=== PATIENT | female | born 1945 | race Caucasian/White ===

== ENCOUNTER 2017-05-17 23:34 | Inpatient (IN) ==
[2017-05-18] MEDS ORDERED: MORPHINE 2 MG/1 ML SYRINGE ONE (00:17)
[2017-05-18] MEDS ORDERED: ONDANSETRON 4 MG/2 ML VIAL ONE ×4 (00:17→11:00)
[2017-05-18] MEDS ORDERED: SODIUM CHLORIDE 0.9% 1,000 ML IV STA (00:18)
[2017-05-18] MEDS ORDERED: ONDANSETRON 4 MG/2 ML VIAL IV ONE (00:18)
[2017-05-18] MEDS ORDERED: MORPHINE 2 MG/1 ML SYRINGE IV ONE (00:18)
[2017-05-18 00:44] LABS: Basophils # 0.1 10*3/uL (0.0-0.2); Basophils % 0.5 % (0.0-0.8); Eosinophils # 0.3 10*3/uL (0.0-0.87); Eosinophils % 2.9 % (0.00-10.9); Hematocrit 38.8 VOL% (35.7-47.0); Hemoglobin 13.3 GM/DL (12.0-16.0); Immature Granulocytes % 0.6 %; Immature Granulocytes Absolute 0.06 #; Lymphocytes # 1.6 10*3/uL (1.4-4.0); Lymphocytes % 16.8 % (21.3-54.2); Mean Corpuscular HGB Conc 34.3 GM/DL (32-36); Mean Corpuscular Hemoglobin 33 PG (27-34); Mean Corpuscular Volume 96.8 FL (87-102); Mean Platelet Volume 10.2 FL (9.6-12.0); Monocytes # 0.6 10*3/uL (0.11-0.8); Neutrophils # 6.8 10*3/uL (1.4-7.4); Neutrophils % 73.2 % (38.7-73.9); Platelet Count 183 T/CUMM (130-400); Red Blood Count 4.01 MC/CUMM (3.8-5.5); Red Cell Distribution Width 12.4 % (9.3-17.3); White Blood Count 9.3 T/CUMM (4-12)
[2017-05-18 00:51] LABS: INR 1.1
[2017-05-18 01:05] LABS: Alanine Aminotransferase 15 U/L (13-56); Alkaline Phosphatase 81 U/L (45-117); Aspartate Amino Transferase 21 U/L (0-37); Blood Urea Nitrogen 25 MG/DL (7-18); Glucose 126 MG/DL (74-106); Osmolality,Calculated 284.4 MOS/KG (273-304); Potassium 4.9 MMOL/L (3.5-5.1); Sodium 140 MMOL/L (136-145); Total Protein 7.7 G/DL (6.4-8.3); Troponin I Only < 0.015 NG/ML (0.00-0.045)
[2017-05-18] MEDS ORDERED: hydrALAZINE 20 MG/1 ML VIAL IV STA (01:22)
[2017-05-18] MEDS ORDERED: HYDROmorphone 2 MG/1 ML VIAL IV STA (01:22)
[2017-05-18] MEDS ORDERED: HYDROmorphone 2 MG/1 ML VIAL ONE (01:24)
[2017-05-18] MEDS ORDERED: hydrALAZINE 20 MG/1 ML VIAL ONE ×2 (01:24→10:56)
[2017-05-18] MEDS ORDERED: PROMETHAZINE INJ 25 MG in SODIUM CHLORIDE 0.9% 50 ML IV ONE (02:50)
[2017-05-18] MEDS ORDERED: PROMETHAZINE 25 MG/1 ML VIAL ONE (02:50)
[2017-05-18] MEDS ORDERED: PROMETHAZINE 25 MG/1 ML VIAL IM PRN (03:14)
[2017-05-18] MEDS ORDERED: PIPERACILLIN/TAZOBACTAM 3,375 MG in SODIUM CHLORIDE 0.9% 100 ML IV STA (03:14)
[2017-05-18] MEDS ORDERED: ACETAMINOPHEN 325 MG TABLET PO PRN (03:14)
[2017-05-18] MEDS ORDERED: PIPERACILLIN/TAZOBACTAM 3,375 MG VIAL IV ONE (05:16)
[2017-05-18] MEDS ORDERED: SODIUM CHLORIDE 0.9% 100 ML IV ONE (05:16)
[2017-05-18] MEDS: LACTATED RINGERS 1,000 ML IV SCH ×3 (05:26→19:24)
[2017-05-18] MEDS: PIPERACILLIN/TAZOBACTAM 3,375 MG in SODIUM CHLORIDE 0.9% 100 ML IV SCH ×3 (07:48→20:26)
[2017-05-18 08:42] LABS: Basophils % 0.5 % (0.0-0.8); Eosinophils # 0.1 10*3/uL (0.0-0.87); Hematocrit 38.2 VOL% (35.7-47.0); Hemoglobin 12.8 GM/DL (12.0-16.0); Immature Granulocytes % 0.5 %; Immature Granulocytes Absolute 0.03 #; Lymphocytes # 1.4 10*3/uL (1.4-4.0); Lymphocytes % 21.9 % (21.3-54.2); Mean Corpuscular HGB Conc 33.5 GM/DL (32-36); Mean Corpuscular Hemoglobin 33 PG (27-34); Mean Corpuscular Volume 99.2 FL (87-102); Mean Platelet Volume 10.2 FL (9.6-12.0); Monocytes # 0.4 10*3/uL (0.11-0.8); Monocytes % 6.7 % (1.7-12.7); Neutrophils # 4.5 10*3/uL (1.4-7.4); Neutrophils % 68.4 % (38.7-73.9); Platelet Count 182 T/CUMM (130-400); Red Blood Count 3.85 MC/CUMM (3.8-5.5); Red Cell Distribution Width 12.7 % (9.3-17.3); White Blood Count 6.5 T/CUMM (4-12)
[2017-05-18] MEDS: PANTOPRAZOLE 40 MG TABLET PO SCH (08:50)
[2017-05-18 09:21] LABS: Albumin 3.6 G/DL (3.4-5.0); Bilirubin,Total 0.4 MG/DL (0.2-1.0); Calcium 8.3 MG/DL (8.5-10.1); Osmolality,Calculated 282.4 MOS/KG (273-304); Potassium 4.5 MMOL/L (3.5-5.1); Total Protein 7.1 G/DL (6.4-8.3)
[2017-05-18] MEDS ORDERED: SCOPOLAMINE 1.5 MG PATCH TRANSDERM STA (09:40)
[2017-05-18] MEDS ORDERED: SCOPOLAMINE 1.5 MG PATCH TRANSDERM ONE (09:41)
[2017-05-18] MEDS ORDERED: ACETAMINOPHEN 1,000 MG/100 ML VIAL IV ONE (09:47)
[2017-05-18] MEDS ORDERED: FAMOTIDINE 20 MG/2 ML VIAL IV ONE (09:47)
[2017-05-18] MEDS ORDERED: ONDANSETRON 4 MG/2 ML VIAL IV STA (09:47)
[2017-05-18] MEDS ORDERED: ALBUMIN 5% 12.5 GM/250 ML VIAL IV ONE (09:47)
[2017-05-18 10:24] LABS: Amorphous Crystals,Urine Occasional /HPF (Few); Apearance,Urine CLEAR (Clear); Bilirubin,Urine Negative (Negative); Blood, Urine Negative (Negative); Glucose,Urine (UA) Negative (Negative); Ketones,Urine Negative (Negative); Mucus,Urine Occasional /LPF (Occasional); Nitrite,Urine Negative (Negative); Protein,Urine Negative; RBC,Urine 7 /HPF (0-4); Squamous Epithelial Cell,Urine Occasional /HPF (0-10); Urine Color Straw (Yellow); Urine Specific Gravity 1.032 (1.001-1.035); Urine Urobilinogen < 2.0 EU/DL (0.2-1.0); WBC,Urine 1 /HPF (0-6)
[2017-05-18] MEDS ORDERED: DESFLURANE 1 UNIT/15 MINUTE INH ONE (10:55)
[2017-05-18] MEDS ORDERED: fentaNYL 100 MCG/2 ML VIAL ONE (10:56)
[2017-05-18] MEDS ORDERED: PHENYLEPHRINE 1 MG/10 ML SYRINGE IV ONE (10:56)
[2017-05-18] MEDS ORDERED: SUCCINYLCHOLINE 200 MG/10 ML VIAL ONE (10:56)
[2017-05-18] MEDS ORDERED: ETOMIDATE 40 MG/20 ML VIAL IV ONE (10:56)
[2017-05-18] MEDS ORDERED: NEOSTIGMINE 10 MG/10 ML VIAL ONE (10:56)
[2017-05-18] MEDS ORDERED: GLYCOPYRROLATE 0.4 MG/2 ML VIAL ONE (10:56)
[2017-05-18] MEDS ORDERED: DEXAMETHASONE 10 MG/1 ML VIAL ONE (10:56)
[2017-05-18] MEDS ORDERED: ROCURONIUM 100 MG/10 ML VIAL IV ONE (10:56)
[2017-05-18] MEDS ORDERED: ONDANSETRON 4 MG/2 ML VIAL IV PRN (10:59)
[2017-05-18] MEDS ORDERED: MEPERIDINE 25 MG/1 ML VIAL IV PRN (10:59)
[2017-05-18] MEDS ORDERED: MORPHINE 10 MG/1 ML VIAL ONE (11:00)
[2017-05-18] MEDS ORDERED: LABETALOL 20 MG/4 ML SYRINGE IV ONE (11:00)
[2017-05-18] MEDS: MORPHINE 10 MG/1 ML VIAL IV PRN ×2 (11:00→11:10)
[2017-05-18] MEDS ORDERED: LABETALOL 100 MG/20 ML VIAL IV ONE (11:30)
[2017-05-19] MEDS: LACTATED RINGERS 1,000 ML IV SCH ×2 (03:07→18:38)
[2017-05-19] MEDS: MORPHINE 2 MG/1 ML SYRINGE IV PRN ×5 (04:58→22:43)
[2017-05-19] MEDS: PIPERACILLIN/TAZOBACTAM 3,375 MG in SODIUM CHLORIDE 0.9% 100 ML IV SCH ×3 (05:05→21:02)
[2017-05-19 05:47] LABS: Basophils % 0.1 % (0.0-0.8); Immature Granulocytes % 0.5 %; Immature Granulocytes Absolute 0.06 #; Lymphocytes % 8.6 % (21.3-54.2); Mean Corpuscular HGB Conc 33.3 GM/DL (32-36); Mean Corpuscular Hemoglobin 32 PG (27-34); Mean Corpuscular Volume 97.1 FL (87-102); Mean Platelet Volume 10.5 FL (9.6-12.0); Monocytes # 0.5 10*3/uL (0.11-0.8); Monocytes % 4.6 % (1.7-12.7); Neutrophils # 10.2 10*3/uL (1.4-7.4); Neutrophils % 86.2 % (38.7-73.9); Platelet Count 165 T/CUMM (130-400); Red Cell Distribution Width 13.2 % (9.3-17.3); White Blood Count 11.8 T/CUMM (4-12)
[2017-05-19] MEDS: ENOXAPARIN 40 MG/0.4 ML SYRINGE SUBCUT SCH (06:18)
[2017-05-19 06:21] LABS: Calcium 8.5 MG/DL (8.5-10.1); Osmolality,Calculated 282.4 MOS/KG (273-304); Potassium 4.3 MMOL/L (3.5-5.1); Total Protein 5.9 G/DL (6.4-8.3)
[2017-05-19] MEDS: PANTOPRAZOLE 40 MG TABLET PO SCH (10:28)
[2017-05-19] MEDS: DEXT 5% NACL 0.45% KCL 20 MEQ 20 MEQ/1,000 ML BAG IV SCH (18:02)
[2017-05-20] MEDS: PIPERACILLIN/TAZOBACTAM 3,375 MG in SODIUM CHLORIDE 0.9% 100 ML IV SCH ×3 (04:44→21:30)
[2017-05-20] MEDS: ENOXAPARIN 40 MG/0.4 ML SYRINGE SUBCUT SCH (06:09)
[2017-05-20 06:42] LABS: Calcium 8.4 MG/DL (8.5-10.1); Osmolality,Calculated 280.4 MOS/KG (273-304); Potassium 4.6 MMOL/L (3.5-5.1)
[2017-05-20] MEDS: ONDANSETRON 4 MG/2 ML VIAL IV PRN ×2 (07:30→23:04)
[2017-05-20] MEDS: PANTOPRAZOLE 40 MG TABLET PO SCH (08:12)
[2017-05-20] MEDS: MORPHINE 2 MG/1 ML SYRINGE IV PRN ×3 (08:12→23:05)
[2017-05-20] MEDS: DEXT 5% NACL 0.45% KCL 20 MEQ 20 MEQ/1,000 ML BAG IV SCH ×2 (10:59→19:08)
[2017-05-21] MEDS: DEXT 5% NACL 0.45% KCL 20 MEQ 20 MEQ/1,000 ML BAG IV SCH (02:42)
[2017-05-21] MEDS: PIPERACILLIN/TAZOBACTAM 3,375 MG in SODIUM CHLORIDE 0.9% 100 ML IV SCH ×3 (05:13→21:49)
[2017-05-21] MEDS: ENOXAPARIN 40 MG/0.4 ML SYRINGE SUBCUT SCH (05:13)
[2017-05-21 05:24] LABS: Osmolality,Calculated 280.4 MOS/KG (273-304); Potassium 4.3 MMOL/L (3.5-5.1)
[2017-05-21] MEDS: PANTOPRAZOLE 40 MG TABLET PO SCH (09:40)
[2017-05-21] MEDS: ONDANSETRON 4 MG/2 ML VIAL IV PRN (09:40)
[2017-05-21] MEDS: MORPHINE 2 MG/1 ML SYRINGE IV PRN (09:40)
[2017-05-22] MEDS: MORPHINE 2 MG/1 ML SYRINGE IV PRN (00:49)
[2017-05-22] MEDS: ONDANSETRON 4 MG/2 ML VIAL IV PRN (02:14)
[2017-05-22 05:42] LABS: Calcium 8.2 MG/DL (8.5-10.1); Osmolality,Calculated 276.5 MOS/KG (273-304); Potassium 4.2 MMOL/L (3.5-5.1)
[2017-05-22] MEDS: PIPERACILLIN/TAZOBACTAM 3,375 MG in SODIUM CHLORIDE 0.9% 100 ML IV SCH ×2 (05:47→12:35)
[2017-05-22] MEDS: ENOXAPARIN 40 MG/0.4 ML SYRINGE SUBCUT SCH (07:21)
[2017-05-22] MEDS: PANTOPRAZOLE 40 MG TABLET PO SCH (09:42)
[2017-05-22] MEDS: DEXT 5% NACL 0.45% KCL 20 MEQ 20 MEQ/1,000 ML BAG IV SCH ×2 (12:36)
[2017-05-22] MEDS: BISACODYL 10 MG SUPP RECTAL SCH (16:42)
[2017-05-23] MEDS: BISACODYL 10 MG SUPP RECTAL SCH ×2 (03:31→16:50)
[2017-05-23] MEDS: ENOXAPARIN 40 MG/0.4 ML SYRINGE SUBCUT SCH (07:17)
[2017-05-23] MEDS: PANTOPRAZOLE 40 MG TABLET PO SCH (09:03)
[2017-05-23] MEDS ORDERED: SODIUM PHOSPHATE ENEMA 133 ML BOTTLE RECTAL PRN (15:38)
[2017-05-23] MEDS: ONDANSETRON 4 MG/2 ML VIAL IV PRN (20:48)
[2017-05-24] MEDS: MORPHINE 4 MG/1 ML VIAL IV PRN ×2 (00:46→04:35)
[2017-05-24] MEDS ORDERED: hydrALAZINE 20 MG/1 ML VIAL IV ONE (02:00)
[2017-05-24] MEDS: BISACODYL 10 MG SUPP RECTAL SCH ×2 (04:15→15:52)
[2017-05-24] MEDS ORDERED: NITROGLYCERIN SL 0.4 MG TABLET SL PRN (04:33)
[2017-05-24] MEDS: ONDANSETRON 4 MG/2 ML VIAL IV PRN (04:35)
[2017-05-24] MEDS ORDERED: NITROGLYCERIN SL 0.4 MG TABLET SL ONE (04:37)
[2017-05-24 04:53] LABS: Basophils % 0.5 % (0.0-0.8); Eosinophils # 0.4 10*3/uL (0.0-0.87); Hematocrit 34.8 VOL% (35.7-47.0); Hemoglobin 11.7 GM/DL (12.0-16.0); Immature Granulocytes % 2.7 %; Immature Granulocytes Absolute 0.15 #; Lymphocytes # 1.1 10*3/uL (1.4-4.0); Lymphocytes % 20.7 % (21.3-54.2); Mean Corpuscular HGB Conc 33.6 GM/DL (32-36); Mean Corpuscular Hemoglobin 33 PG (27-34); Mean Corpuscular Volume 97.5 FL (87-102); Mean Platelet Volume 10.1 FL (9.6-12.0); Monocytes # 0.4 10*3/uL (0.11-0.8); Monocytes % 7.4 % (1.7-12.7); Neutrophils # 3.3 10*3/uL (1.4-7.4); Neutrophils % 60.7 % (38.7-73.9); Platelet Count 152 T/CUMM (130-400); Red Blood Count 3.57 MC/CUMM (3.8-5.5); Red Cell Distribution Width 12.7 % (9.3-17.3); White Blood Count 5.5 T/CUMM (4-12)
[2017-05-24] MEDS ORDERED: ASPIRIN CHEW 81 MG TABLET PO ONE (05:00)
[2017-05-24 05:11] LABS: Albumin 3.1 G/DL (3.4-5.0); Bilirubin,Total 0.4 MG/DL (0.2-1.0); Calcium 8.5 MG/DL (8.5-10.1); Osmolality,Calculated 277.4 MOS/KG (273-304); Potassium 3.9 MMOL/L (3.5-5.1); Total Protein 6.7 G/DL (6.4-8.3)
[2017-05-24] MEDS: ENOXAPARIN 40 MG/0.4 ML SYRINGE SUBCUT SCH (06:08)
[2017-05-24] MEDS ORDERED: hydrALAZINE 20 MG/1 ML VIAL IV PRN (07:45)
[2017-05-24] MEDS: PANTOPRAZOLE 40 MG TABLET PO SCH (09:10)
[2017-05-24] MEDS ORDERED: NIFEdipine 10 MG CAPSULE PO PRN (10:42)
[2017-05-24] MEDS: METOPROLOL TARTRATE 50 MG TABLET PO SCH ×2 (11:52→20:35)
[2017-05-24] MEDS: LACTATED RINGERS 1,000 ML IV SCH ×2 (11:59→20:36)
[2017-05-25 03:20] LABS: Basophils % 0.4 % (0.0-0.8); Eosinophils # 0.4 10*3/uL (0.0-0.87); Eosinophils % 7.9 % (0.00-10.9); Hematocrit 31.9 VOL% (35.7-47.0); Immature Granulocytes % 1.5 %; Immature Granulocytes Absolute 0.08 #; Lymphocytes # 1.4 10*3/uL (1.4-4.0); Lymphocytes % 24.9 % (21.3-54.2); Mean Corpuscular HGB Conc 34.5 GM/DL (32-36); Mean Corpuscular Hemoglobin 33 PG (27-34); Mean Corpuscular Volume 96.4 FL (87-102); Mean Platelet Volume 9.5 FL (9.6-12.0); Monocytes # 0.4 10*3/uL (0.11-0.8); Monocytes % 6.8 % (1.7-12.7); Neutrophils # 3.2 10*3/uL (1.4-7.4); Neutrophils % 58.5 % (38.7-73.9); Platelet Count 151 T/CUMM (130-400); Red Blood Count 3.31 MC/CUMM (3.8-5.5); Red Cell Distribution Width 13.1 % (9.3-17.3); White Blood Count 5.4 T/CUMM (4-12)
[2017-05-25 03:44] LABS: Calcium 8.2 MG/DL (8.5-10.1); Osmolality,Calculated 281.1 MOS/KG (273-304); Potassium 3.6 MMOL/L (3.5-5.1)
[2017-05-25 03:49] LABS: Blood Urea Nitrogen 13 MG/DL (7-18); Calcium 8.3 MG/DL (8.5-10.1); Glucose 88 MG/DL (74-106); Osmolality,Calculated 281.1 MOS/KG (273-304); Potassium 3.6 MMOL/L (3.5-5.1); Sodium 142 MMOL/L (136-145); Troponin I Only < 0.015 NG/ML (0.00-0.045)
[2017-05-25 03:55] LABS: Free T4 (Free Thyroxine) 0.73 NG/DL (0.76-1.46); Thyroid Stimulating Hormone 63.3 uIU/ml (0.358-3.74)
[2017-05-25] MEDS: BISACODYL 10 MG SUPP RECTAL SCH ×2 (04:48→16:18)
[2017-05-25] MEDS: MORPHINE 4 MG/1 ML VIAL IV PRN ×3 (05:22→20:32)
[2017-05-25] MEDS: ENOXAPARIN 40 MG/0.4 ML SYRINGE SUBCUT SCH (05:23)
[2017-05-25] MEDS: LEVOTHYROXINE 88 MCG TABLET PO SCH (06:09)
[2017-05-25] MEDS ORDERED: ENALAPRIL 2.5 MG/2 ML VIAL IV PRN (07:51)
[2017-05-25] MEDS: LACTATED RINGERS 1,000 ML IV SCH (10:32)
[2017-05-25] MEDS: PANTOPRAZOLE 40 MG TABLET PO SCH (10:32)
[2017-05-25] MEDS: METOPROLOL TARTRATE 50 MG TABLET PO SCH ×2 (10:32→20:32)
[2017-05-25] MEDS: DOCUSATE SODIUM 100 MG CAPSULE PO SCH (20:32)
[2017-05-26] MEDS: BISACODYL 10 MG SUPP RECTAL SCH (03:40)
[2017-05-26] MEDS: LEVOTHYROXINE 88 MCG TABLET PO SCH (06:00)
[2017-05-26] MEDS: ENOXAPARIN 40 MG/0.4 ML SYRINGE SUBCUT SCH (06:00)
[2017-05-26] MEDS ORDERED: LIDOCAINE 1%/EPI INJ 20 ML VIAL ONE (07:39)
[2017-05-26] MEDS ORDERED: TISSUE ADHESIVE 1 EACH APPLICATOR TOP ONE (07:40)
[2017-05-26] MEDS ORDERED: ceFAZolin 1,000 MG VIAL ONE (07:40)
[2017-05-26] MEDS: DOCUSATE SODIUM 100 MG CAPSULE PO SCH (10:10)
[2017-05-26] MEDS: PANTOPRAZOLE 40 MG TABLET PO SCH (10:11)
[2017-05-26] MEDS: METOPROLOL TARTRATE 50 MG TABLET PO SCH (10:11)
[2017-05-26 11:18] VITALS: BP 127/77
== END 2017-05-26 12:35 | disposition home health service (06) | DRG 336 ==
LOC: N.ED 23:34 → N.EDINP 05-18 03:14 → N.3E 05-18 04:06
PROVIDERS: ADMIT Surgery; ATTEND Surgery

== ENCOUNTER 2021-12-22 22:31 | Observation (INO) ==
[2021-12-22 22:56] LABS: Basophils % 0.4 % (0.0-0.8); Eosinophils # 0.1 10*3/uL (0.0-0.87); Eosinophils % 2.3 % (0.00-10.9); Hematocrit 36.1 VOL% (35.7-47.0); Hemoglobin 11.8 GM/DL (12.0-16.0); Immature Granulocytes % 0.4 %; Immature Granulocytes Absolute 0.02 #; Lymphocytes # 0.3 10*3/uL (1.4-4.0); Mean Corpuscular HGB Conc 32.7 GM/DL (32-36); Mean Corpuscular Volume 96.5 FL (87-102); Mean Platelet Volume 10.7 FL (9.6-12.0); Monocytes # 0.3 10*3/uL (0.11-0.8); Neutrophils % 82.9 % (38.7-73.9); Platelet Count 142 T/CUMM (130-400); Red Blood Count 3.74 MC/CUMM (3.8-5.5); Red Cell Distribution Width 13.7 % (9.3-17.3); White Blood Count 4.7 T/CUMM (4-12)
[2021-12-22 23:11] LABS: Albumin 3.7 G/DL (3.4-5.0); Bilirubin,Total 0.5 MG/DL (0.20-1.00); Calcium 8.6 MG/DL (8.5-10.1); Osmolality,Calculated 281.5 MOS/KG (273-304); Potassium 4.2 MMOL/L (3.5-5.1); Total Protein 6.9 G/DL (6.4-8.2)
[2021-12-22 23:53] LABS: PT Patient Result 11.1 SECS (10.1-12.1); Partial Thromboplastin Time 32.1 SECS (23.7-32.9)
[2021-12-23] MEDS ORDERED: ACETAMINOPHEN 325 MG/10.15 ML UDCUP PO STA (00:48)
[2021-12-23] MEDS ORDERED: ACETAMINOPHEN 325 MG TABLET PO ONE (00:56)
[2021-12-23] MEDS ORDERED: ONDANSETRON 4 MG/2 ML VIAL IV PRN (03:23)
[2021-12-23] MEDS ORDERED: ACETAMINOPHEN 325 MG TABLET PO PRN (03:23)
[2021-12-23] MEDS ORDERED: hydrALAZINE 20 MG/1 ML VIAL IV PRN (03:23)
[2021-12-23] MEDS ORDERED: ASPIRIN 325 MG TABLET PO STA (03:23)
[2021-12-23] MEDS ORDERED: MORPHINE 2 MG/1 ML SYRINGE IV PRN (03:23)
[2021-12-23] MEDS ORDERED: LACTATED RINGERS 1,000 ML IV SCH (03:30)
[2021-12-23] MEDS ORDERED: NITROGLYCERIN SL 0.4 MG TABLET SL PRN (04:00)
[2021-12-23] MEDS ORDERED: LEVOTHYROXINE 112 MCG TABLET PO SCH (07:00)
[2021-12-23] MEDS ORDERED: carvediloL 12.5 MG TABLET PO SCH (09:00)
[2021-12-23] MEDS ORDERED: PANTOPRAZOLE 40 MG TABLET PO SCH (09:00)
[2021-12-23 12:16] VITALS: BP 159/56
[2021-12-23] MEDS ORDERED: ROSUVASTATIN 20 MG TABLET PO SCH (21:00)
[2021-12-23] MEDS ORDERED: RIVAROXABAN 20 MG TABLET PO SCH (21:00)
[2021-12-23] MEDS ORDERED: lisinopriL 10 MG TABLET PO SCH (21:00)
[2021-12-24] MEDS ORDERED: CLOPIDOGREL 75 MG TABLET PO SCH (09:00)
== END 2021-12-23 13:06 | disposition home or self-care (01) ==
LOC: EDUNIT# → EDBD → N.EDINP 22:31 → N.ED 22:31 → SUATTDRO 12-23 03:23 → N.EDINP 12-23 08:12 → N.TELEN 12-23 08:49
PROVIDERS: ADMIT Family Medicine; ATTEND Emergency Medicine